=== PATIENT | male | born 2000 | race Hispanic/Latino ===

== ENCOUNTER 2021-03-09 20:32 | Inpatient (IN) | payer OTHER ==
[~2021-03-09] VITALS: Ht 170.2 cm; Wt 72.4 kg
[2021-03-09 21:51] LABS: HEMATOCRIT 42.6 % (42.0-52.0); HEMOGLOBIN 14.9 g/dl (13.5-17.5); MEAN CORPUSCULAR HEMOGLOBIN 29.4 pg (27.0-33.0); PLATELET COUNT, AUTOMATED 200 10^3/uL (150-450); RED BLOOD COUNT 5.07 10^6/uL (4.30-6.10); WHITE BLOOD COUNT 7.2 10^3/uL (4.0-10.0)
[2021-03-09 22:17] LABS: AMPHETAMINES LEVEL URINE NEGATIVE (NEGATIVE); BARBITURATES URINE NEGATIVE (NEGATIVE); BENZODIAZEPINES URINE NEGATIVE (NEGATIVE); CANNABINOIDS URINE NEGATIVE (NEGATIVE); COCAINE METABOLITE URINE NEGATIVE (NEGATIVE); METHADONE URINE NEGATIVE (NEGATIVE); OPIATES URINE NEGATIVE (NEGATIVE); PHENCYCLIDINE URINE NEGATIVE (NEGATIVE)
[2021-03-09 22:31] LABS: ACETAMINOPHEN LEVEL < 2.0 UG/ML (10.0-30.0); ALBUMIN 4.1 GM/DL (3.2-5.2); ALT/SGPT 28 U/L (12-78); BILIRUBIN,DIRECT 0.1 MG/DL (0.0-0.2); BILIRUBIN,TOTAL 0.3 MG/DL (0.2-1.0); BLOOD UREA NITROGEN 18 MG/DL (7-18); CALCIUM LEVEL 9.4 MG/DL (8.5-10.1); CARBON DIOXIDE LEVEL 21 MEQ/L (21-32); CHLORIDE LEVEL 109 MEQ/L (98-107); CREATININE FOR GFR 1.06 MG/DL (0.70-1.30); ETHYL ALCOHOL (ETHANOL) < 0.003 % (0.000-0.010); GLUCOSE, FASTING 102 MG/DL (70-100); POTASSIUM SERUM 3.9 MEQ/L (3.5-5.1); SALICYLATE LEVEL < 1.7 MG/DL (5.0-30.0); SODIUM LEVEL 140 MEQ/L (136-145); TOTAL PROTEIN 7.6 GM/DL (6.4-8.2)
--- OUTSIDE RECORDS SUMMARY | 2021-03-09 22:46 | CCD ---
Author Author [facility] Address Unknown Phone Unavailable Support Name Relationship Address Phone [facility] Next Of Kin [address] [place] [address] Unavailable MARY FOREMAN Next Of Kin [address] [place] [address] [place], [place] [phone] Re-disclosure Warning The records that you are about to access may contain information from federally-assisted alcohol or drug abuse programs. If such information is present, then the following federally mandated warning applies: This information has been disclosed to you from records protected by federal confidentiality rules (42 CFR part 2). The federal rules prohibit you from making any further disclosure of this information unless further disclosure is expressly permitted by the written consent of the person to whom it pertains or as otherwise permitted by 42 CFR part 2. A general authorization for the release of medical or other information is NOT sufficient for this purpose. The Federal rules restrict any use of the information to criminally investigate or prosecute any alcohol or drug abuse patient.The records that you are about to access may contain highly sensitive health information, the redisclosure of which is protected by Article 27-F of the [facility] Public Health law. If you continue you may have access to information: Regarding HIV / AIDS; Provided by facilities licensed or operated by the [facility] Office of Mental Health; or Provided by the [facility] Office for People With Developmental Disabilities. If such information is present, then the following [facility] mandated warning applies: This information has been disclosed to you from confidential records which are protected by state law. State law prohibits you from making any further disclosure of this information without the specific written consent of the person to whom it pertains, or as otherwise permitted by law. Any unauthorized further disclosure in violation of state law may result in a fine or chcf sentence or both. A general authorization for the release of medical or other information is NOT sufficient authorization for further disc losure. Medications No Information Insurance Providers Payer name Policy type / Coverage type Policy ID Covered green party ID Covered green party's relationship to guzman Policy Guzman Plan Information [facility] [id number] Problems, Conditions, and Diagnoses No Information Surgeries/Procedures No Information Results No Information Social History No Information
--- OUTSIDE RECORDS SUMMARY | 2021-03-09 22:56 | CCD ---
Author Author [facility] Address Unknown Phone Unavailable Support Name Relationship Address Phone [facility] Next Of Kin [address] [place] [address] Unavailable MARY FOREMAN Next Of Kin [address] [place], [place] [phone] Re-disclosure Warning The records that you are [...] is protected by Article 27-F of the [facility] Public Health law. If you continue you may have access to information: Regarding HIV / AIDS; Provided by facilities licensed or operated by the [facility] Office of Mental Health; or Provided by the [facility] Office for People With Developmental Disabilities. If such information is present, then the following [facility] mandated warning applies: This information has [...] law may result in a fine or group home sentence or both. A general authorization for the release of medical or other information is NOT sufficient authorization for further disc losure. Medications No Information Insurance Providers Payer name Policy type / Coverage type Policy ID Covered democrat ID Covered democrat's relationship to guzman Policy Guzman Plan Information [facility] ACTIVE DUTY [id number] Problems, Conditions, and Diagnoses No Information Surgeries/Procedures No Information Results No Information Social History No Information
[2021-03-10] MEDS ORDERED: HOME MED LIST COMPLETE! XX SCH (06:15)
[2021-03-10 09:45] LABS: RSV AMPLIFICATION NEGATIVE (NEGATIVE)
[2021-03-10] MEDS ORDERED: MOM 30ML SUSPENSION UDC PO PRN (18:45)
[2021-03-10] MEDS ORDERED: ACETAMINOPHEN TAB 650MG DOSE (2X325MG) PO PRN (18:45)
[2021-03-10] MEDS ORDERED: MAALOX 30 ML SUSP *UDC PO PRN (18:45)
[2021-03-10] MEDS ORDERED: traZODone 50 MG TAB PO PRN (18:45)
--- OUTSIDE RECORDS SUMMARY | 2021-03-10 18:53 | CCD ---
Author Author [facility] Address Unknown Phone Unavailable Support Name Relationship Address Phone [facility] Next Of Kin [address] [place] [address] Unavailable MARY FOREMAN Next Of Kin [address] [place], [place] [phone] Re-disclosure Warning The records that you are [...] is protected by Article 27-F of the [facility] Public Health law. If you continue you may have access to information: Regarding HIV / AIDS; Provided by facilities licensed or operated by the [facility] Office of Mental Health; or Provided by the [facility] Office for People With Developmental Disabilities. If such information is present, then the following [facility] mandated warning applies: This information has been [...] law may result in a fine or senior care sentence or both. A general authorization for the release of medical or other information is NOT sufficient authorization for further disc losure. Medications No Information Insurance Providers Payer name Policy type / Coverage type Policy ID Covered green party ID Covered green party's relationship to guzman Policy Guzman Plan Information [facility] ACTIVE DUTY [id number] Problems, Conditions, and Diagnoses No Information Surgeries/Procedures No Information Results No Information Social History No Information
[2021-03-10 21:56] VITALS: BP 124/79
[2021-03-11 06:05] VITALS: BP 126/68
--- NOTE | 2021-03-11 08:33 | MHHPEPDOC ---
General Date Of Admission: Mar 10, 2021 Legal Status: 9.39 Chief Complaint "there was a whole bunch of emotions" History of Present Illness HISTORY OF THE PRESENT ILLNESS: Patient is a 20 -year-old , male, who has no past psychiatric history was brought by [facility] . States was out looking to buy a car and didn't tell anyone, says logan xiong was knocking on his door, states "there was a bunch of emotions going through my mind" and another circulation crew leader jumped in his window and saw him trying to cut himself with seatbelt cutter. States he was afraid of getting in trouble again, in the morning didn't call a sergeant by his rank. Stressors include chronic thoughts about childhood, "sometimes I fell people don't care", states when he was 3 y/o was taken away from parents due to parent drug use and aunt Mariposa adopted him and raised him, says they had a strained relationship with her because he felt she was "bipolar, because she would snap out of nowhere and it was hard to live with her". States mother 4 years ago, father is distant and he rarely talks to him. Says he found out he had a brother and sister 3 months ago, says this "hit him" and now he wants to figure out where they are. Patient denies depression or anxiety symptoms, states he has emotional periods, shows me superficial scratches on arms, denies was having suicidal thoughts or intent or plan. 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 Denies HI, intent or plan, denies manic symptoms, denies any psychotic symptoms, no hallucinations or delusions. Per PSA report: "Pt was brought to the ED by his TAIWO after he was found cutting his forearm. Per pt's TAIWO, SGT Maxine ([phone]) & SGT Roxana ([phone]), pt was released from work to go to dinner & did not return at the specified time. TAIWO went to his room to look for him & he would not answer his door. One of the soldiers entered his room through an open window & found pt cutting his forearm. Per TAIWO, pt did not say that he was trying to kill himself but did say that nobody would care if he was gone. Pt states that he left work early & did not inform anyone before he left. He states that he went to go look at a car that he was thinking about buying & then went back to his room. He states that TAIWO came to his room looking for him & they caught him cutting his forearm with a seat belt repairer. Pt states he cut himself "in the heat of the moment" because he always holds his emotions in. Pt states that his whole life he has felt like nobody cares about him. He lived with his aunt growing up & they did not get along. He never met his mother, who is now , & he has had little contact with his father. Pt states that he has been in the [employer] since August 2020 & arrived at [facility] a month ago, so he does not feel like part of the team because he is "the new saul." Pt states that he got in trouble at work earlier in the day because another PVT told SGGabriella Harris that pt was calling him by his last name without the rank in front of it. Pt states that he feels betrayed by this other soldier. Pt denies SI & HI. He states that the cutting was not a suicide attempt. However, per EMR, pt initially told supervisor coke handling that he did have SI, but then denied SI when she asked the C-SSRS questions. Pt denies telling supervisor coke handling that he was suicidal. Pt denies any hx of suicide attempts or self-harm. Pt denies both AH & VH. He does not appear to be psychotic. Pt c/o depressed mood. He reports that his concentration, energy levels, sleep, & appetite are good. Pt denies any hx of mental health dx or tx. No hx of admissions. No current OP tx. Pt denies any alcohol or drug use & his tox screen was negative." Psychiatric Review of Systems Depression (2 or more weeks): denies Hill (4 or more days of): denies Psychosis: denies PTSD: mood fluctuations, denies Anxiety: denies Anxiety/ 6 months or more of: personality cluster A,BC (emotional lability, scratching to "help with emotions") Past Psychiatric History no past psychiatric hx Past Medical History Medical Problems denies Head Injury: No Seizures: No Hospitalizations: No Surgeries: No Family Medical/Psychiatric HX Medical Problems denies Addiction History denies Social History Childhood: Grew up in [place], 2 siblings he wants to find Abuse/Trauma:denies Current Living Situation: In [facility] Education: grade 12 Employment: [employer] soldier Social Support: best friend Pedrito Graff Legal: denies Marital: never , single Mental Status Examination General Appearance: well groomed, other (scratches left forearm) Build: average Demeanor: average Eye Contact: average Activity: average Behavior: cooperative Speech: clear, reg/rate,rhythm,volume Mood: euthymic Mood "pretty good" Affect: full Thought Process: logical/linear Thought Content (Delusions): none reported Thought Content (Other): none reported Thought Content (Aggressive): none reported Perception (Hallucinations): none reported Perception (Other): none reported Cognition (Impairment of): none reported Cognition(Intelligence Est.): average Oriented: Awake, Alert, Oriented times three Insight: good Judgment: Good Psychosis: Denies Diagnoses Adjustment disorder Cluster B traits A-FIB/CHADSVASC A-FIB History Current/History of A-Fib/PAF?: No Current PO Anticoag Therapy: No Age/Risk Factor Scoring CHADSVASC: CHADSVASC Response (Comments) Value Age Risk Factor Age < 65 years old 0 Gender Risk Factor Male 0 Hx of CHF No 0 Hx of HTN No 0 Hx of Stroke/TIA/or VTE No 0 Hx of Diabetes No 0 Hx of Vascular Disease No 0 Total 0 Treatment Treatment ordered: NONE Reason Anticoagulant not given: Not indicated/[id number] Assessment 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 States he wants to talk to somebody about these chronic stressors of him growing up without his parents and that therapy would be an option for him, agreeable to [facility] outpatient. Labs unremarkable, toxicology negative. Initial Treatment Plan 1. Patient was admitted on a [9.39] status. 2. Complete history was obtained. 3. With patients permission, family will be contacted and database will be expanded. 4. Patients medication regimen will be reviewed and changed accordingly. 5. Patient will be provided with protected environment. 6. Patient will be treated with individual, group, and milieu therapies. 7. Patient will receive supportive psych-education. 8. Discharge planning will commence immediately. 9. Outpatient follow-up treatment will be strongly recommended. 10. The initial treatment plan will focus initially on: * Depression. * Risk for suicide. ESTIMATED LENGTH OF STAY: 0-2 DAYS. TIME SPENT COUNSELING AND COORDINATING INITIAL CARE: 50 minutes. Tobacco Cessation Screen If Patient is a Smoker none N/A-No Antipsychotics Vital Signs Vital Signs Date Time Temp Pulse Resp B/P (MAP) Pulse Ox O2 Delivery O2 Flow Rate FiO2 03/11/21 06:05 97.6 63 16 126/68 (87) 100 Room Air Laboratory Data 24H Labs Laboratory Tests 2 03/10/21 08:49: Coronavirus (COVID-19)(PCR) NEGATIVE, Influenza Type A (RT-PCR) NEGATIVE, Inf luenza Type B (RT-PCR) NEGATIVE, Respiratory Syncytial Virus (PCR) NEGATIVE Medications No Active Prescriptions or Reported Meds Allergies Coded Allergies: No Known Allergies (Unverified , 03/09/21) TYLER HIGGINS MD Mar 11, 2021 08:32
[2021-03-11] MEDS ORDERED: NICO14DI6 TOP (08:36)
--- NOTE | 2021-03-11 08:40 | MHDSPDOC ---
[facility] Discharge Summary Discharge Summary DATE OF ADMISSION: Mar 10, 2021 at 18:42 DATE OF DISCHARGE: March 11, 2021 Discharge diagnoses: Adjustment disorder Cluster B traits Reason for admission:Patient is a 20 -year-old , male, who has no past psychiatric history [facility] States was out looking to buy a car and didn't tell anyone, says logan xiong was knocking on his door, states "there was a bunch of emotions going through my mind" and another regional sales leader jumped in his window and saw him trying to cut himself with seatbelt cutter. States he was afraid of getting in trouble again, in the morning didn't call a sergeant by his rank. Stressors include chronic thoughts about childhood, "sometimes I fell people don't care", states when he was 3 y/o was taken away from parents due to parent drug use and aunt Mariposa adopted him and raised him, says they had a strained relationship with her because he felt she was "bipolar, because she would snap out of nowhere and it was hard to live with her". States mother 4 years ago, father is distant and he rarely talks to him. Says he found out he had a brother and sister 3 months ago, says this "hit him" and now he wants to figure out where they are. Patient denies depression or anxiety symptoms, states he has emotional periods, shows me superficial scratches on arms, denies was having suicidal thoughts or intent or plan. 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 Denies HI, intent or plan, denies manic symptoms, denies any psychotic symptoms, no hallucinations or delusions. Per PSA report: "Pt was brought to the ED by his TAIWO after he was found cutting his forearm. Per pt's TAIWO, SGGabriella Goodman ([phone]) & SGT Roxana ([phone]), pt was released from work to go to dinner & did not return at the specified time. TAIWO went to his room to look for him & he would not answer his door. One of the soldiers entered his room through an open window & found pt cutting his forearm. Per TAIWO, pt did not say that he was trying to kill himself but did say that nobody would care if he was gone. Pt states that he left work early & did not inform anyone before he left. He states that he went to go look at a car that he was thinking about buying & then went back to his room. He states that TAIWO came to his room looking for him & they caught him cutting his forearm with a seat v belt skiver. Pt states he cut himself "in the heat of the moment" because he always holds his emotions in. Pt states that his whole life he has felt like nobody cares about him. He lived with his aunt growing up & they did not get along. He never met his mother, who is now , & he has had little contact with his father. Pt states that he has been in the [employer] since August 2020 & arrived at [place] a month ago, so he does not feel like part of the team because he is "the new saul." Pt states that he got in trouble at work earlier in the day because another PVT told SGGabriella Steven that pt was calling him by his last name without the rank in front of it. Pt states that he feels betrayed by this other soldier. Pt denies SI & HI. He states that the cutting was not a suicide attempt. However, per EMR, pt initially told smearer that he did have SI, but then denied SI when she asked the C-SSRS questions. Pt denies telling smearer that he was suicidal. Pt denies any hx of suicide attempts or self-harm. Pt denies both AH & VH. He does not appear to be psychotic. Pt c/o depressed mood. He reports that his concentration, energy levels, sleep, & appetite are good. Pt denies any hx of mental health dx or tx. No hx of admissions. No current OP tx. Pt denies any alcohol or drug use & his tox screen was negative." Vital signs: See below Consultants involved: See medical H&P by hospitalist Treatment and progress on the unit: Patient was admitted to the [facility] on a legal status and was afforded the following treatment modalities: 1. Individual therapy 2. Group therapy 3. Medication management 4. Milieu therapy 5. Safe environment Hospital course: Patient was admitted to the [facility] on a legal status. Was medically cleared prior to coming up to the [facility]. Patient presented without symptoms of depression, anxiety, psychosis, hill. Denied any suicidal ideation, intent or plan. Denies any homicidal ideation, intent or plan. Denies drug use, toxicology screen negative. States he be willing to see an outpatient therapist to discuss his chronic stressors related to his upbringing, finding his siblings, being new in the [employer]. Today on discharge patient denied depression, anxiety, insomnia, suicidal or homicidal ideations intent or plan, hallucinations, delusions. Patient was discharged home with follow-up. Patient felt safe for discharge. Was offered continued stay involuntary admission but refused. Discharge assessment: On today's interview patient is alert and oriented, dressed appropriately. Hygiene and grooming is well-kept. Smiles on approach and is pleasant and engaged on interview. Denies depression and anxiety. Denies suicidal homicidal ideation, intent or planning. Denies and is not observed with hlil or psychotic symptoms of delusions, hallucinations, bizarre thinking, obsessions, paranoia, ruminations, illogical thoughts, flight of ideas or having poor insight or judgment. Patient has normal mentation, declines furt her hospitalization of voluntary status and meets criteria for discharge today, patient encouraged to return the hospital if symptoms worsen or change and encouraged to call unit if they feel they need provider's questions to be answered or help with medications or care. Mental status: General Appearance: well groomed, other (scratches left forearm) Build: average Demeanor: average Eye Contact: average Activity: average Behavior: cooperative Speech: clear, reg/rate,rhythm,volume Mood: euthymic Mood "pretty good" Affect: full, bright, smiles and laughs, appropriate Thought Process: logical/linear Thought Content (Delusions): none reported Thought Content (Other): none reported Thought Content (Aggressive): none reported Perception (Hallucinations): none reported Perception (Other): none reported Cognition (Impairment of): none reported Cognition(Intelligence Est.): average Oriented: Awake, Alert, Oriented times three Insight: good Judgment: Good Psychosis: Denies Medications on discharge: see medication reconciliation: CSSRS on discharge: Wish to be : No nonspecific active suicidal thoughts: No lifetime attempts: 0 interrupted attempts: 0 aborted attempts: 0 preparatory acts or behavior: None Taking into consideration safety state, status, modifiable, non-modifiable risk factors patient is at low risk on discharge for suicide according to [facility] suicide evaluation. PLAN/FOLLOWUP ARRANGEMENTS: We will have appointment with [facility] The amount of time spent in the coordination of care for this patient was approximately 25 minutes. ETOH/Disorder Med Rx ETOH/DRUG DISORDER RX: Offrd @ d/c & pt refused Vital Signs/I&Os Vital Signs Date Time Temp Pulse Resp B/P (MAP) Pulse Ox O2 Delivery O2 Flow Rate FiO2 03/11/21 06:05 97.6 63 16 126/68 (87) 100 Room Air Laboratory Data Labs 24H Laboratory Tests 2 03/10/21 08:49: Coronavirus (COVID-19)(PCR) NEGATIVE, Influenza Type A (RT-PCR) NEGATIVE, Influenza Type B (RT-PCR) NEGATIVE, Respiratory Syncytial Virus (PCR) NEGATIVE Medications Scheduled Nicotine (Nicotine Patch) 14 Mg Patch.td24, 1 PATCH TOP DAILY for smoking cessation for 28 Days, #28 Allergies Coded Allergies: No Known Allergies (Unverified , 03/09/21) TYLER HIGGINS MD Mar 11, 2021 08:40
[2021-03-11] MEDS ORDERED: INFLUENZA QUADRIVALENT PF VACCINE 0.5ML SYRINGE IM ONE (09:00)
== END 2021-03-11 13:15 | disposition home or self-care (01) | DRG 882 ==
LOC: M ED 20:32 → M ED INP 03-10 18:42 → M PSY 03-10 20:58
PROVIDERS: ADMIT Psychiatry & Neurology Psychiatry; ATTEND Student in an Organized Health Care Education/Training Program
DX: F43.20 Adjustment disorder, unspecified (principal); F60.89 Other specific personality disorders; Z91.52 Personal history of nonsuicidal self-harm; Z56.4 Discord with boss and workmates